=== PATIENT | female | born 1980 | race African-American/Black ===

== ENCOUNTER 2017-05-20 21:30 | Emergency (ER) | payer OTHER ==
[2017-05-20] MEDS: LIDOCAINE 1% MDV 20ML VIAL IM (23:56)
[2017-05-21] MEDS ORDERED: CEPHALEXIN 500 MG CAP PO (00:15)
== END 2017-05-21 00:27 | disposition home or self-care (01) ==
LOC: M ED 21:30
DX: N76.4 Abscess of vulva (principal)
CPT/HCPCS: 87076